=== PATIENT | male | born 1960 | race Two or more races ===

== ENCOUNTER 2019-12-07 21:47 | Emergency (ER) | payer MEDICAID, OTHER ==
[~2019-12-07] VITALS: Ht 170.2 cm; Wt 80.3 kg
--- NOTE | 2019-12-07 21:47 | NUR ---
BIB EMS C/O INTERMITTENT L SIDED CP RADIATING TO BACK SINCE THIS MORNING, (+) WEAK & DIZZY. PT AAOX4 NO ACUTE DISTRESS NOTED, RESP EVEN AND UNLABORED. SKIN WARM, NONDIAPHORETIC. PLAC EPT ON CARDIAC MONITORING, CONTINUOUS POX. PENDING ER MD DILLON.
--- NOTE | 2019-12-07 21:47 | NUR ---
PT WAS GIVEN ASPIRIN 325MG PO AND NITRO SPRAY X3 PER EMS REPORTING DEVELOPER.
--- NOTE | 2019-12-07 22:09 | NUR ---
BLOOD DRAWN AND SENT TO THE LAB
[2019-12-07 22:10] LABS: BASOPHILS # (AUTO) 0.1 /CMM (0.0-0.2); BASOPHILS % (AUTO) 0.9 % (0.0-2.0); HEMATOCRIT 42 % (39-51); HEMOGLOBIN 14.2 g/dL (13.5-17.5); LYMPHOCYTES # (AUTO) 1.7 /CMM (0.8-4.8); LYMPHOCYTES % (AUTO) 19.8 % (20.0-44.0); MEAN CORPUSCULAR HGB CONC 34 g/dl (31.0-36.0); MEAN CORPUSCULAR VOLUME 99 fL (80-96); MONOCYTES # (AUTO) 0.6 /CMM (0.1-1.30); MONOCYTES % (AUTO) 7.2 % (2.0-12.0); NEUTROPHILS % (AUTO) 71.1 % (43.0-81.0); PLATELET COUNT (AUTO) 262 /CMM (150-450); RED BLOOD CELL COUNT(AUTO) 4.21 MIL/uL (4.5-6.0); WHITE BLOOD COUNT (AUTO) 8.5 K/uL (4.3-11.0)
--- NOTE | 2019-12-07 22:10 | NUR ---
AT THE BED SIDE
--- NOTE | 2019-12-07 22:18 | NUR ---
LEFT FOR CT
[2019-12-07 22:19] LABS: CARBON DIOXIDE 28 mmol/L (21-32); CHLORIDE 98 mmol/L (98-107); CREATININE 0.7 mg/dL (0.6-1.3); GLUCOSE 97 mg/dL (74-106); POTASSIUM 3.8 mmol/L (3.5-5.1); SODIUM SERUM 136 mmol/L (136-145); UREA NITROGEN, BLOOD 14 mg/dL (7-18)
--- NOTE | 2019-12-07 22:25 | NUR ---
BACK FROM CT
--- NOTE | 2019-12-07 23:39 | NUR ---
Patient is resting comfortably in bed with eyes closed. Easily aroused. VSS
--- NOTE | 2019-12-08 00:31 | NUR ---
PER AT THE BED SIDE, PT IS NOT TAKING ANY HOME MEDS
--- NOTE | 2019-12-08 00:44 | NUR ---
DR MELLO ON THE PHONE WITH EDISON CAMPOS
--- NOTE | 2019-12-08 01:17 | NUR ---
TRANSFER INFO: PT WILL BE TRANSFERRED TO [facility] NUMBER FOR REPORT: [phone] NURSE FOR REPORT: MARY PENDING TRANSPORTATION ETA
--- NOTE | 2019-12-08 01:21 | NUR ---
liliam. ETA:3AM
[2019-12-08 02:09] VITALS: BP 139/89
--- NOTE | 2019-12-08 03:04 | NUR ---
REPORT GIVEN TO MARY BECKWITH [facility] AND it investment/portfolio manager.
--- NOTE | 2019-12-08 03:09 | NUR ---
PT WAS TRANSFERRED TO [facility] IN STABLE CONDITION.
== END 2019-12-08 03:13 | disposition short-term general hospital (02) ==
LOC: ER 21:48
DX: G45.9 Transient cerebral ischemic attack, unspecified (principal); K21.9 Gastro-esophageal reflux disease without esophagitis; Z87.442 Personal history of urinary calculi; Z85.46 Personal history of malignant neoplasm of prostate
CPT/HCPCS: 36415; 70450-TC; 71045-TC; 80048-TC; 84484-TC; 85025-TC